=== PATIENT | female | born 1995 | race Caucasian/White ===

== ENCOUNTER → 2017-02-24 | Outpatient (CLI) | payer OTHER ==
--- NOTE | 2017-02-24 12:39 | DIAGNOSTIC IMAGING REPORT ---
PELVIC COMPLETE NON OB HISTORY: 22 years-old Female POST COITAL BLEEDING,DYSPAREUNIA symptoms are acute in nature. Initial exam. COMPARISON: None available TECHNIQUE: Multiple real-time sonographic images of the deep pelvic structures were obtained transabdominally and transvaginally assessing grayscale appearance, color and spectral flow FINDINGS: TRANSABDOMINAL: Anteflexed uterus measures 5.2 x 3.2 x 4.1 cm and is unremarkable. TRANSVAGINAL: Anteflexed uterus measures 6.2 x 2.6 x 3.6 cm. Endometrium measures 0.2 cm. No myometrial mass lesions identified. Right ovary measures 3.0 x 1.1 x 2.1 cm with arterial inflow documented. Left ovary measures 2.5 x 1.0 x 1.3 cm with arterial inflow documented. No focal cyst or other abnormality of either ovary. Mild amount of free pelvic fluid, likely physiologic. IMPRESSION: 1. Unremarkable sonographic appearance of the uterus, endometrium and ovaries without evidence of ovarian torsion. 2. Mild amount of free pelvic fluid, likely physiologic. The above report was generated using voice recognition software. It may contain grammatical, syntax or spelling errors. Electronically signed by: Gabriel Storm M.D. 02/24/2017 12:37 PM Dictated Date/Time: 02/24/2017 12:35 PM
== END | disposition home or self-care (01) ==
LOC: C.ULTRBC 11:49
PROVIDERS: ATTEND Nurse Practitioner Obstetrics & Gynecology
DX: N93.0 Postcoital and contact bleeding (principal); N94.10 Unspecified dyspareunia